=== PATIENT | male | born 1980 | race Hispanic/Latino ===

== ENCOUNTER 2020-03-08 08:59 | Outpatient (CLI) | payer OTHER ==
--- NOTE | 2020-03-08 09:22 | RAD ---
EXAM: 3 views of the right shoulder HISTORY: Shoulder pain after falling off a ladder 3 days ago COMPARISON: None FINDINGS: There is widening of the acromioclavicular joint. No fracture is seen. No degenerative frias ges are present. Mild soft tissue swelling is seen. The visualized thorax is unremarkable. IMPRESSION: Grade 2 right AC separation
== END 2020-03-08 09:00 | disposition home or self-care (01) ==
LOC: BICRAD 08:59
DX: S49.91XA Unspecified injury of right shoulder and upper arm, initial encounter (principal)